=== PATIENT | female | born 1995 | race Caucasian/White ===

== ENCOUNTER 2021-11-16 10:03 | Emergency (ER) | payer OTHER ==
[~2021-11-16] VITALS: Ht 162.6 cm; Wt 87.1 kg
[2021-11-16 10:10] VITALS: BP 125/43
--- NOTE | 2021-11-16 10:53 | NUR ---
26 Y/O C/O NECK PAIN X3DAYS, TOOK TYLENOL AND ICY HOT WITH MODERATE EFFECT. DNEIES TRAUMA/INJURY NKA PMH: DENIES
[2021-11-16] MEDS ORDERED: KETOROLAC 30 MG/ML VIAL IM ONE (11:00)
[2021-11-16] MEDS ORDERED: CAPS1ADH5 TP (11:02)
[2021-11-16] MEDS ORDERED: NAPR-1704 PO (11:02)
--- NOTE | 2021-11-16 11:25 | NUR ---
Patient discharged with v/s stable. Written and verbal after care instructions given and explained. Patient alert, oriented and verbalized understanding of instructions. Ambulatory with steady gait. All questions addressed prior to discharge. ID band removed. Patient advised to follow up with PMD. Rx of NAPROXEN, SALONPAS given. Patient educated on indication of medication including possible reaction and side effects. Opportunity to ask questions provided and answered.
== END 2021-11-16 11:09 | disposition home or self-care (01) ==
LOC: MED 10:03
DX: S29.012A Strain of muscle and tendon of back wall of thorax, initial encounter (principal); X58.XXXA Exposure to other specified factors, initial encounter; Y93.89 Activity, other specified; Y92.89 Other specified places as the place of occurrence of the external cause; Y99.8 Other external cause status
CPT/HCPCS: 81002; 81025; 96372; 99283; J1885